=== PATIENT | male | born 1980 ===

== ENCOUNTER 2017-05-10 02:13 | Emergency (ER) | payer SELFPAY ==
[2017-05-10 02:21] VITALS: BP 148/83; PULSE 97; RESP 17; TEMP 98.1; O2SAT 96
--- NOTE | 2017-05-10 03:01 | ED PDOC ---
HPI: Psych/Substance Abuse Time Seen by Provider: 05/10/17 02:23 Chief Complaint (Nursing): Alcohol Ingestion Chief Complaint (Provider): Alcohol Ingestion History Per: Patient History/Exam Limitations: no limitations Current Symptoms Are (Timing): Still Present Modifying Factor(s): Alcohol Additional Complaint(s): 36 year old male brought in by EMS presents to ED for alcohol intoxication. Patient was found sleeping on a sidewalk and admits to EtOH ingestion. Denies drug use or injury. Patient denies any medical complaints. PCP: None Past Medical History Reviewed: Historical Data, Nursing Documentation, Vital Signs Vital Signs: Last Vital Signs Temp 98.1 F 05/10/17 02:18 Pulse 97 H 05/10/17 02:18 Resp 17 05/10/17 02:18 BP 148/83 05/10/17 02:18 Pulse Ox 96 05/10/17 02:18 - Family History Family History: States: Unknown Family Hx - Social History Drugs: Denies - Allergies Allergies/Adverse Reactions: Allergies Allergy/AdvReac Type Severity Reaction Status Date / Time No Known Allergies Allergy Verified 05/10/17 02:21 Review of Systems ROS Statement: Except As Marked, All Systems Reviewed And Found Negative ( denies any medical complaints) Physical Exam - Reviewed Nursing Documentation Reviewed: Yes Vital Signs Reviewed: Yes - Physical Exam Appears: Positive for: Non-toxic, No Acute Distress (intoxicated appearing) Skin: Positive for: Normal Color, Warm, Dry Eye Exam: Positive for: Normal appearance, EOMI, PERRL Respiratory: Positive for: Normal Breath Sounds. Negative for: Respiratory Distress Neurologic/Psych: Positive for: Alert, Oriented, Gait (steady) - ECG O2 Sat by Pulse Oximetry: 96 (RA) Pulse Ox Interpretation: Normal Medical Decision Making Medical Decision Makin Initial impression: EtOH abuse Initial plan: * Accucheck 0240 Accucheck: 83 Patient is stable for discharge home. Return precautions given. Dx: alcohol abuse Scribe Attestation: Documented by Gabby Cummings acting as a scribe for Wilton Bhatti MD. Scribe Attestation: All medical record entries made by the Scribe were at my direction and personally dictated by me. I have reviewed the chart and agree that the record accurately reflects my personal performance of the history, physical exam, medical decision making, and the department course for this patient. I have also personally directed, reviewed, and agree with the discharge instructions and disposition. Disposition - Clinical Impression Clinical Impression: Alcohol abuse - Disposition Referrals: Alcoholics Anonymous [Outside] Disposition: Routine/Home Disposition Time: 02:45 Condition: STABLE Instructions: Alcohol Abuse and Alcoholism (DC) Forms: [facility] (Danish) Print Language: EGYPTIAN
== END 2017-05-10 03:35 | disposition home or self-care (01) ==
LOC: H.ER 02:13
DX: F10.129 Alcohol abuse with intoxication, unspecified (principal)

== ENCOUNTER 2017-10-16 23:12 | Emergency (ER) | payer SELFPAY ==
[2017-10-16 23:22] VITALS: TEMP 97.8
--- NOTE | 2017-10-16 23:28 | ED PDOC ---
HPI: Psych/Substance Abuse Time Seen by Provider: 10/16/17 23:23 Chief Complaint (Nursing): Alcohol Ingestion History Per: Other (Juan is brought by EMS because of intoxication. Patient was in the street.) Past Medical History Reviewed: Historical Data, Nursing Documentation, Vital Signs Vital Signs: Last Vital Signs Temp 97.8 F 10/16/17 23:20 Pulse 78 10/16/17 23:20 Resp 18 10/16/17 23:20 BP 138/78 10/16/17 23:20 Pulse Ox 98 10/16/17 23:20 - Medical History PMH: No Chronic Diseases - Surgical History Surgical History: No Surg Hx - Family History Family History: States: Unknown Family Hx - Social History Alcohol: Other (drinking unknown amounts) - Allergies Allergies/Adverse Reactions: Allergies Allergy/AdvReac Type Severity Reaction Status Date / Time No Known Allergies Allergy Verified 05/10/17 02:21 Review of Systems ROS Statement: Except As Marked, All Systems Reviewed And Found Negative Constitutional: Negative for: Fever, Chills Gastrointestinal: Negative for: Vomiting Physical Exam - Reviewed Nursing Documentation Reviewed: Yes Vital Signs Reviewed: Yes - Physical Exam Appears: Positive for: Well, Non-toxic, No Acute Distress Head Exam: Positive for: ATRAUMATIC, NORMAL INSPECTION, NORMOCEPHALIC Skin: Positive for: Normal Color, Warm, DRY Eye Exam: Positive for: Normal appearance, EOMI ENT: Positive for: Normal ENT Inspection Neck: Positive for: Normal, Painless ROM Cardiovascular/Chest: Positive for: Regular Rate, Rhythm Respiratory: Positive for: CNT, Normal Breath Sounds Gastrointestinal/Abdominal: Positive for: Normal Exam, Soft Back: Positive for: Normal Inspection Extremity: Positive for: Normal ROM Neurologic/Psych: Positive for: Alert, Oriented - ECG O2 Sat by Pulse Oximetry: 98 Disposition - Clinical Impression Clinical Impression: Alcohol abuse with intoxication - Patient ED Disposition Is Patient to be Admitted: Transfer of Care - Disposition Disposition: Transfer of Care Disposition Time: 23:50 Condition: FAIR Instructions: Alcohol Abuse and Alcoholism (DC) Forms: [employer] (Uzbek) Patient Signed Over To: Amy Mitchell Present On Arrival: None
--- NOTE | 2017-10-17 00:05 | ED PDOC ---
- ECG O2 Sat by Pulse Oximetry: 98 (RA) Pulse Ox Interpretation: Normal Medical Decision Making Medical Decision Making: Time: 0:00 Patient signed out to me by Dr. Lyons pending sobriety. pt resting comfortably in no distress 6 am, Patient is sober, alert and oriented, stable gait, and will be discharged. Clinical Impression: alcohol abuse with intoxication Upon provider evaluation patient is medically stable, and requires no further treatment in the ED at this time. Patient will be discharged. Counseling was provided and all questions were answered regarding diagnosis and need for follow up with PMD. There is agreement to discharge plan. Return if symptoms persist or worsen. Scribe Attestation: Documented by Todd Srivastava, acting as a scribe for Amy Mitchell MD Provider Scribe Attestation: All medical record entries made by the Scribe were at my direction and personally dictated by me. I have reviewed the chart and agree that the record accurately reflects my personal performance of the history, physical exam, medical decision making, and the department course for this patient. I have also personally directed, reviewed, and agree with the discharge instructions and disposition. Disposition Counseled Patient/Family Regarding: Studies Performed, Diagnosis, Need For Followup - Clinical Impression Clinical Impression: Alcohol abuse with intoxication - POA Present On Arrival: None - Disposition Disposition: Routine/Home Disposition Time: 06:00 Condition: IMPROVED Additional Instructions: follow up with your primary doctor in 1-2 days return to the ED with any worsening or concerning symptoms Instructions: Alcohol Abuse and Alcoholism (DC) Forms: [employer] (Bhutanese)
[2017-10-17 06:02] VITALS: BP 125/73; PULSE 68; RESP 20
[2017-10-17 19:56] VITALS: O2SAT 98
== END 2017-10-17 06:20 | disposition home or self-care (01) ==
LOC: H.ER 23:12
DX: F10.129 Alcohol abuse with intoxication, unspecified (principal)
CPT/HCPCS: 82948; 99283; G0480